=== PATIENT | female | born 1960 | race Caucasian/White ===

== ENCOUNTER → 2017-02-13 | Outpatient (CLI) | payer OTHER | END | disposition home or self-care (01) | LOC: CFH 08:34 | PROVIDERS: ATTEND Genetic Counselor, MS | DX: Z12.31 Encounter for screening mammogram for malignant neoplasm of breast (principal); M81.0 Age-related osteoporosis without current pathological fracture | CPT/HCPCS: 77080; G0202 ==

== ENCOUNTER 2017-05-31 19:58 | Emergency (ER) | payer OTHER ==
[~2017-05-31] VITALS: Ht 175.3 cm; Wt 60.9 kg
[2017-05-31 20:00] VITALS: BP 121/80
[2017-05-31] MEDS ORDERED: PROPOFOL 10 MG/ML, 20ML ONE (21:20)
[2017-05-31] MEDS ORDERED: PROPOFOL 10 MG/ML, 20ML IVPush ONE (21:30)
[2017-05-31] MEDS ORDERED: SODIUM CHLORIDE FLUSH 10ML SYR IVF ONE (21:30)
[2017-05-31] MEDS ORDERED: SODIUM CHLORIDE 0.9% 1,000ML IVBOLUS ONE (21:30)
[2017-05-31] MEDS ORDERED: HYDROcodone/APAP 5/325 TABLET ONE (21:47)
[2017-05-31] MEDS ORDERED: HYDROcodone/APAP 5/325 TABLET PO ONE (22:00)
== END 2017-05-31 22:58 | disposition home or self-care (01) ==
LOC: ED 22:35
DX: S52.511A Displaced fracture of right radial styloid process, initial encounter for closed fracture (principal); E78.5 Hyperlipidemia, unspecified; F10.220 Alcohol dependence with intoxication, uncomplicated; Z87.891 Personal history of nicotine dependence; X58.XXXA Exposure to other specified factors, initial encounter; Y93.89 Activity, other specified; Y92.090 Kitchen in other non-institutional residence as the place of occurrence of the external cause; Y99.8 Other external cause status
CPT/HCPCS: 25605; 36415; 80307; 99152; 99153

== ENCOUNTER 2019-05-27 07:39 | Outpatient (CLI) | payer OTHER | END 2019-05-27 23:59 | disposition home or self-care (01) | LOC: CFH 07:39 | PROVIDERS: ATTEND Genetic Counselor, MS | DX: R59.1 Generalized enlarged lymph nodes (principal); M85.80 Other specified disorders of bone density and structure, unspecified site; R91.8 Other nonspecific abnormal finding of lung field; Z90.710 Acquired absence of both cervix and uterus | CPT/HCPCS: 74177; 82565; Q9967 ==

== ENCOUNTER 2019-06-01 11:35 | Observation (INO) | payer OTHER ==
[~2019-06-01] VITALS: Ht 175.3 cm; Wt 54.0 kg
[~2019-06-01 11:35] MED LIST: EPINEPHRINE SYRINGE 0.1 MG/ML, 10ML ONE
[2019-06-01] MEDS ORDERED: LACTATED RINGERS 1,000 ML IV SCH (12:17)
[2019-06-01] MEDS ORDERED: LEVO100T5 PO (12:20)
[2019-06-01] MEDS ORDERED: MULT-658 PO (12:20)
[2019-06-01] MEDS ORDERED: CHOL100011 PO (12:20)
[2019-06-01] MEDS ORDERED: FISH OIL PO (12:20)
[2019-06-01 12:32] VITALS: BP 127/85
[2019-06-01] MEDS ORDERED: MIDAZOLAM 1 MG/ML, 2ML ONE ×2 (14:19→15:30)
[2019-06-01] MEDS ORDERED: PROPOFOL 10 MG/ML, 20ML ONE (14:20)
[2019-06-01] MEDS ORDERED: DEXAMETHASONE 4 MG/ML, 1ML ONE (14:20)
[2019-06-01] MEDS ORDERED: SUCCINYLCHOLINE 20 MG/ML, 10ML ONE (14:20)
[2019-06-01] MEDS ORDERED: ROCURONIUM 10 MG/ML,10ML ONE (14:20)
[2019-06-01] MEDS ORDERED: SUGAMMADEX 200 MG/2 ML IVPush ONE (15:07)
[2019-06-01] MEDS ORDERED: FENTANYL PF 250 MCG/5ML ONE (15:07)
[2019-06-01] MEDS ORDERED: ALBUTEROL SULFATE 2.5 MG/3 ML ONE (15:28)
[2019-06-01] MEDS ORDERED: ACETAMINOPHEN 325 MG TABLET PO PRN (15:30)
[2019-06-01] MEDS ORDERED: hydrALAzine 20 MG/ML, 1ML IV PRN (15:30)
[2019-06-01] MEDS ORDERED: HYDROmorphone 2 MG/ML, 1ML IVPush PRN (15:30)
[2019-06-01] MEDS ORDERED: EPHEDRINE 50 MG/ML, 1ML IVPush PRN (15:30)
[2019-06-01] MEDS ORDERED: MEPERIDINE/PF 25MG/0.5ML IVPush PRN (15:30)
[2019-06-01] MEDS ORDERED: DIAZEPAM 5 MG/ML, 2ML IVPush PRN (15:30)
[2019-06-01] MEDS ORDERED: OXYcodone 5 MG/5 ML ORAL.SOL UDC PO PRN (15:30)
[2019-06-01] MEDS ORDERED: ALBUTEROL SULFATE 2.5 MG/3 ML NPPB PRN (15:30)
[2019-06-01] MEDS ORDERED: ONDANSETRON 2MG/ML, 2ML IV PRN (15:30)
[2019-06-01] MEDS ORDERED: PROMETHAZINE 12.5 MG SUPP PR PRN (15:30)
[2019-06-01] MEDS ORDERED: FENTANYL PF 100 MCG/2ML ONE (15:30)
[2019-06-01] MEDS ORDERED: HALOPERIDOL 5 MG/ML IV PRN (15:30)
[2019-06-01] MEDS ORDERED: ONDANSETRON ODT 8 MG PO PRN (15:30)
[2019-06-01] MEDS ORDERED: PROMETHAZINE 25 MG/ML, 1ML IV PRN (15:30)
[2019-06-01] MEDS ORDERED: MORPHINE SULFATE 4 MG/ML, 1ML IVPush PRN (15:30)
[2019-06-01] MEDS ORDERED: LABETALOL 5MG/ML, 20ML IV PRN (15:30)
[2019-06-01] MEDS: MIDAZOLAM 1 MG/ML, 2ML IV PRN ×2 (15:32→15:47)
[2019-06-01] MEDS: FENTANYL PF 100 MCG/2ML IV PRN ×2 (15:33→15:47)
[2019-06-01 19:15] VITALS: BP 113/76
[2019-06-02 00:20] VITALS: BP 97/64
[2019-06-02] MEDS ORDERED: LEVOTHYROXINE 125 MCG TABLET PO SCH (06:00)
[2019-06-02 07:39] VITALS: BP 116/70
[2019-06-02 13:20] VITALS: BP 104/67
== END 2019-06-02 14:05 | disposition home or self-care (01) ==
LOC: OUT 11:35 → ORIP 18:18 → 4NOR 19:09 → DCLOUNGE 06-02 13:52
PROVIDERS: ADMIT Internal Medicine; ATTEND Internal Medicine
DX: C34.90 Malignant neoplasm of unspecified part of unspecified bronchus or lung (principal); E03.9 Hypothyroidism, unspecified; R09.02 Hypoxemia; Z87.891 Personal history of nicotine dependence
CPT/HCPCS: 31629; 71045; 88172; 88173; 88177; 88305; 93005; 94640; G0378; J0330; J1100; J2250; J2704; J3010; J7120; 88341; 88342

== ENCOUNTER 2019-06-03 07:55 | Outpatient (CLI) | payer OTHER ==
[~2019-06-03 07:55] MED LIST changes: +CHOL100011 PO; -EPINEPHRINE SYRINGE 0.1 MG/ML, 10ML ONE; +FISH OIL PO; +LEVO100T5 PO; +MULT-658 PO
[2019-06-03] MEDS ORDERED: GADOBUTROL 7.5 MMOL/7.5 ML VIAL ONE (08:30)
== END 2019-06-03 23:59 | disposition home or self-care (01) ==
LOC: CFH 07:55
PROVIDERS: ATTEND Internal Medicine
DX: C79.31 Secondary malignant neoplasm of brain (principal); C78.6 Secondary malignant neoplasm of retroperitoneum and peritoneum; C77.1 Secondary and unspecified malignant neoplasm of intrathoracic lymph nodes; R91.8 Other nonspecific abnormal finding of lung field
CPT/HCPCS: 70553; 78815; A9552; A9585

== ENCOUNTER → 2019-10-07 | Outpatient (CLI) | payer OTHER ==
[~2019-10-07] MED LIST changes: +OMNIPAQUE 350 MG/ML, 100ML BOTTLE ONE
== END | disposition home or self-care (01) ==
LOC: RAD 08:42
PROVIDERS: ATTEND Internal Medicine Hematology & Oncology
DX: C34.12 Malignant neoplasm of upper lobe, left bronchus or lung (principal); M47.812 Spondylosis without myelopathy or radiculopathy, cervical region; M17.0 Bilateral primary osteoarthritis of knee; M19.071 Primary osteoarthritis, right ankle and foot; M47.816 Spondylosis without myelopathy or radiculopathy, lumbar region; I25.10 Atherosclerotic heart disease of native coronary artery without angina pectoris; M47.814 Spondylosis without myelopathy or radiculopathy, thoracic region; M48.54XA Collapsed vertebra, not elsewhere classified, thoracic region, initial encounter for fracture; M48.56XA Collapsed vertebra, not elsewhere classified, lumbar region, initial encounter for fracture; Z87.891 Personal history of nicotine dependence
CPT/HCPCS: 71260; 74177; 78306; A9503; Q9967

== ENCOUNTER → 2019-10-14 | Outpatient (CLI) | payer OTHER ==
[~2019-10-14] MED LIST changes: +GADOTERATE 5 MMOL/10 ML VIAL ONE; -OMNIPAQUE 350 MG/ML, 100ML BOTTLE ONE
== END | disposition home or self-care (01) ==
LOC: CFH 09:30
PROVIDERS: ATTEND Radiology Radiation Oncology
DX: C79.31 Secondary malignant neoplasm of brain (principal); C34.90 Malignant neoplasm of unspecified part of unspecified bronchus or lung; G31.89 Other specified degenerative diseases of nervous system; G93.89 Other specified disorders of brain; I10 Essential (primary) hypertension
CPT/HCPCS: 70553; A9575

== ENCOUNTER → 2019-10-17 | Outpatient (CLI) | payer OTHER ==
[~2019-10-17] MED LIST changes: -GADOTERATE 5 MMOL/10 ML VIAL ONE
== END | disposition home or self-care (01) ==
LOC: ROC 09:21
PROVIDERS: ATTEND Radiology Radiation Oncology
DX: C79.31 Secondary malignant neoplasm of brain (principal)
CPT/HCPCS: 99213; G0463

== ENCOUNTER → 2019-12-08 | Outpatient (CLI) | payer OTHER ==
[~2019-12-08] MED LIST changes: +GADOTERATE 5 MMOL/10 ML VIAL ONE
== END | disposition home or self-care (01) ==
LOC: CFH 11:52
PROVIDERS: ATTEND Radiology Radiation Oncology
DX: C79.31 Secondary malignant neoplasm of brain (principal); G31.9 Degenerative disease of nervous system, unspecified
CPT/HCPCS: 70553; A9575

== ENCOUNTER → 2020-01-26 | Outpatient (CLI) | payer OTHER ==
[~2020-01-26] MED LIST changes: -GADOTERATE 5 MMOL/10 ML VIAL ONE; +OMNIPAQUE 350 MG/ML, 100ML BOTTLE ONE
== END | disposition home or self-care (01) ==
LOC: CFH 11:49
PROVIDERS: ATTEND Internal Medicine Hematology & Oncology
DX: C34.12 Malignant neoplasm of upper lobe, left bronchus or lung (principal); M47.816 Spondylosis without myelopathy or radiculopathy, lumbar region; M85.88 Other specified disorders of bone density and structure, other site; N28.89 Other specified disorders of kidney and ureter; I70.0 Atherosclerosis of aorta
CPT/HCPCS: 71260; 74177; Q9967

== ENCOUNTER → 2020-03-12 | Outpatient (CLI) | payer OTHER ==
[~2020-03-12] MED LIST changes: +GADOTERATE 7.5 MMOL/15 ML SYR ONE; -OMNIPAQUE 350 MG/ML, 100ML BOTTLE ONE
== END | disposition home or self-care (01) ==
LOC: CFH 12:24
PROVIDERS: ATTEND Radiology Radiation Oncology
DX: C79.31 Secondary malignant neoplasm of brain (principal); G93.89 Other specified disorders of brain
CPT/HCPCS: 70553; A9575

== ENCOUNTER 2020-04-30 11:54 | Outpatient (CLI) | payer OTHER ==
[~2020-04-30 11:54] MED LIST changes: -GADOTERATE 7.5 MMOL/15 ML SYR ONE
[2020-04-30] MEDS ORDERED: OMNIPAQUE 350 MG/ML, 100ML BOTTLE ONE (14:41)
== END 2020-04-30 23:59 | disposition home or self-care (01) ==
LOC: CFH 11:54
PROVIDERS: ATTEND Internal Medicine Hematology & Oncology
DX: C34.12 Malignant neoplasm of upper lobe, left bronchus or lung (principal); J98.19 Other pulmonary collapse; R91.8 Other nonspecific abnormal finding of lung field; G95.89 Other specified diseases of spinal cord
CPT/HCPCS: 71260; 74177; Q9967

== ENCOUNTER → 2020-06-13 | Outpatient (CLI) | payer OTHER ==
[~2020-06-13] MED LIST changes: +GADOTERATE 5 MMOL/10 ML VIAL ONE
== END | disposition home or self-care (01) ==
LOC: CFH 10:02 → EDSTATUS 10:30
PROVIDERS: ATTEND Internal Medicine Hematology & Oncology
DX: C79.31 Secondary malignant neoplasm of brain (principal); C34.12 Malignant neoplasm of upper lobe, left bronchus or lung
CPT/HCPCS: 70553; A9575

== ENCOUNTER 2020-08-01 07:48 | Outpatient (CLI) | payer OTHER ==
[~2020-08-01 07:48] MED LIST changes: -GADOTERATE 5 MMOL/10 ML VIAL ONE
== END 2020-08-01 23:59 | disposition home or self-care (01) ==
LOC: ROC 07:48
PROVIDERS: ATTEND Radiology Radiation Oncology
DX: C79.51 Secondary malignant neoplasm of bone (principal); R19.09 Other intra-abdominal and pelvic swelling, mass and lump; C34.12 Malignant neoplasm of upper lobe, left bronchus or lung; C79.31 Secondary malignant neoplasm of brain
CPT/HCPCS: 99213; G0463

== ENCOUNTER 2020-08-07 07:16 | Day surgery (SDC) | payer OTHER ==
[~2020-08-07] VITALS: Ht 175.3 cm; Wt 53.0 kg
[2020-08-07 07:42] VITALS: BP 119/84
[2020-08-07] MEDS ORDERED: LACTATED RINGERS 1,000 ML IV SCH (07:45)
== END 2020-08-07 08:51 | disposition home or self-care (01) ==
LOC: OUT 07:16
PROVIDERS: ATTEND Internal Medicine Hematology & Oncology
DX: R19.09 Other intra-abdominal and pelvic swelling, mass and lump (principal); Z53.8 Procedure and treatment not carried out for other reasons; C34.12 Malignant neoplasm of upper lobe, left bronchus or lung; C79.31 Secondary malignant neoplasm of brain; C79.51 Secondary malignant neoplasm of bone; E03.9 Hypothyroidism, unspecified; Z79.890 Hormone replacement therapy; Z87.891 Personal history of nicotine dependence
CPT/HCPCS: J7120

== ENCOUNTER 2020-09-11 08:21 | Outpatient (CLI) | payer OTHER | END 2020-09-11 23:59 | disposition home or self-care (01) | LOC: ROC 08:21 | PROVIDERS: ATTEND Radiology Radiation Oncology | DX: Z08 Encounter for follow-up examination after completed treatment for malignant neoplasm (principal); Z85.830 Personal history of malignant neoplasm of bone; E03.9 Hypothyroidism, unspecified; Z85.118 Personal history of other malignant neoplasm of bronchus and lung; Z87.891 Personal history of nicotine dependence; Z85.841 Personal history of malignant neoplasm of brain | CPT/HCPCS: 99213; G0463 ==

== ENCOUNTER → 2020-09-24 | Outpatient (CLI) | payer OTHER | END | disposition home or self-care (01) | LOC: RAD 09:19 | PROVIDERS: ATTEND Internal Medicine Hematology & Oncology | DX: C34.12 Malignant neoplasm of upper lobe, left bronchus or lung (principal); I82.811 Embolism and thrombosis of superficial veins of right lower extremity; R60.9 Edema, unspecified ==

== ENCOUNTER 2020-10-04 08:01 | Outpatient (CLI) | payer OTHER | END 2020-10-04 23:59 | disposition home or self-care (01) | LOC: ROC 08:01 | PROVIDERS: ATTEND Radiology Radiation Oncology | DX: Z08 Encounter for follow-up examination after completed treatment for malignant neoplasm (principal); E03.9 Hypothyroidism, unspecified; Z85.830 Personal history of malignant neoplasm of bone; Z85.841 Personal history of malignant neoplasm of brain; Z85.118 Personal history of other malignant neoplasm of bronchus and lung; Z87.891 Personal history of nicotine dependence | CPT/HCPCS: 99442 ==

== ENCOUNTER → 2020-11-16 | Outpatient (CLI) | payer OTHER ==
[~2020-11-16] MED LIST changes: +OMNIPAQUE 350 MG/ML, 100ML BOTTLE ONE
== END | disposition home or self-care (01) ==
LOC: CFH 13:15
PROVIDERS: ATTEND Internal Medicine Hematology & Oncology
DX: C34.12 Malignant neoplasm of upper lobe, left bronchus or lung (principal); C79.31 Secondary malignant neoplasm of brain; C79.51 Secondary malignant neoplasm of bone; K76.0 Fatty (change of) liver, not elsewhere classified; R91.8 Other nonspecific abnormal finding of lung field; K57.30 Diverticulosis of large intestine without perforation or abscess without bleeding; J98.4 Other disorders of lung; D70.1 Agranulocytosis secondary to cancer chemotherapy; I71.4 Abdominal aortic aneurysm, without rupture; M48.56XA Collapsed vertebra, not elsewhere classified, lumbar region, initial encounter for fracture; J98.11 Atelectasis; I70.0 Atherosclerosis of aorta
CPT/HCPCS: 71260; 74177; Q9967

== ENCOUNTER → 2020-12-12 | Outpatient (CLI) | payer OTHER ==
[~2020-12-12] MED LIST changes: +GADOTERATE 5 MMOL/10 ML VIAL ONE; -OMNIPAQUE 350 MG/ML, 100ML BOTTLE ONE
== END | disposition home or self-care (01) ==
LOC: CFH 09:01
PROVIDERS: ATTEND Radiology Radiation Oncology
DX: C79.31 Secondary malignant neoplasm of brain (principal); J34.89 Other specified disorders of nose and nasal sinuses
CPT/HCPCS: 70553; A9575

== ENCOUNTER → 2021-02-14 | Outpatient (CLI) | payer OTHER ==
[~2021-02-14] MED LIST changes: -GADOTERATE 5 MMOL/10 ML VIAL ONE; +OMNIPAQUE 350 MG/ML, 100ML BOTTLE ONE
== END | disposition home or self-care (01) ==
LOC: CFH 12:55
PROVIDERS: ATTEND Internal Medicine Hematology & Oncology
DX: Z51.11 Encounter for antineoplastic chemotherapy (principal); Z51.12 Encounter for antineoplastic immunotherapy; R91.1 Solitary pulmonary nodule; K76.0 Fatty (change of) liver, not elsewhere classified; C79.51 Secondary malignant neoplasm of bone; C79.31 Secondary malignant neoplasm of brain; C34.12 Malignant neoplasm of upper lobe, left bronchus or lung; D70.1 Agranulocytosis secondary to cancer chemotherapy; Z79.899 Other long term (current) drug therapy
CPT/HCPCS: 71260; 74177; Q9967

== ENCOUNTER → 2021-03-12 | Outpatient (CLI) | payer OTHER ==
[~2021-03-12] MED LIST changes: +GADOTERATE 7.5 MMOL/15ML SYR ONE; -OMNIPAQUE 350 MG/ML, 100ML BOTTLE ONE; +OMNIPAQUE 350 MG/ML, 75ML BOTTLE ONE
== END | disposition home or self-care (01) ==
LOC: RAD 09:28
PROVIDERS: ATTEND Internal Medicine Hematology & Oncology
DX: C34.12 Malignant neoplasm of upper lobe, left bronchus or lung (principal); R91.8 Other nonspecific abnormal finding of lung field
CPT/HCPCS: 70553; 71260; 78306; A9503; A9575; Q9967

== ENCOUNTER → 2021-04-04 | Outpatient (CLI) | payer OTHER ==
[~2021-04-04] MED LIST changes: -GADOTERATE 7.5 MMOL/15ML SYR ONE; -OMNIPAQUE 350 MG/ML, 75ML BOTTLE ONE
== END | disposition home or self-care (01) ==
LOC: PETCFH 07:23
PROVIDERS: ATTEND Internal Medicine Hematology & Oncology
DX: C34.12 Malignant neoplasm of upper lobe, left bronchus or lung (principal)
CPT/HCPCS: 78815; A9552

== ENCOUNTER → 2021-04-04 | Outpatient (CLI) | payer OTHER | END | disposition home or self-care (01) | LOC: ROC 11:12 | PROVIDERS: ATTEND Radiology Radiation Oncology | DX: Z08 Encounter for follow-up examination after completed treatment for malignant neoplasm (principal); Z85.830 Personal history of malignant neoplasm of bone; Z85.118 Personal history of other malignant neoplasm of bronchus and lung; Z79.899 Other long term (current) drug therapy; Z85.841 Personal history of malignant neoplasm of brain | CPT/HCPCS: 99213; G0463 ==

== ENCOUNTER → 2021-04-22 | Outpatient (CLI) | payer OTHER | END | disposition home or self-care (01) | LOC: RAD 12:45 | PROVIDERS: ATTEND Internal Medicine Hematology & Oncology | DX: C34.12 Malignant neoplasm of upper lobe, left bronchus or lung (principal); R22.43 Localized swelling, mass and lump, lower limb, bilateral | CPT/HCPCS: 93970 ==

== ENCOUNTER 2021-07-05 13:23 | Outpatient (CLI) | payer OTHER | END 2021-07-05 23:59 | disposition home or self-care (01) | LOC: CFH 13:23 | PROVIDERS: ATTEND Internal Medicine Hematology & Oncology | DX: C34.12 Malignant neoplasm of upper lobe, left bronchus or lung (principal); M79.669 Pain in unspecified lower leg | CPT/HCPCS: 93970 ==

== ENCOUNTER 2021-07-15 09:43 | Outpatient (CLI) | payer OTHER | END 2021-07-15 23:59 | disposition home or self-care (01) | LOC: CFH 09:43 | PROVIDERS: ATTEND Radiology Radiation Oncology | DX: C34.12 Malignant neoplasm of upper lobe, left bronchus or lung (principal); R91.8 Other nonspecific abnormal finding of lung field | CPT/HCPCS: 71250 ==

== ENCOUNTER 2021-07-18 08:26 | Outpatient (CLI) | payer OTHER | END 2021-07-18 23:59 | disposition home or self-care (01) | LOC: ROC 08:26 | PROVIDERS: ATTEND Radiology Radiation Oncology | DX: Z08 Encounter for follow-up examination after completed treatment for malignant neoplasm (principal); Z85.841 Personal history of malignant neoplasm of brain; Z85.830 Personal history of malignant neoplasm of bone; Z85.118 Personal history of other malignant neoplasm of bronchus and lung | CPT/HCPCS: 99213; G0463 ==

== ENCOUNTER 2021-07-18 15:03 | Outpatient (CLI) | payer OTHER ==
[2021-07-18] MEDS ORDERED: GADOTERATE 5 MMOL/10ML SYR ONE (16:18)
== END 2021-07-18 23:59 | disposition home or self-care (01) ==
LOC: CFH 15:03
PROVIDERS: ATTEND Internal Medicine Hematology & Oncology
DX: C34.12 Malignant neoplasm of upper lobe, left bronchus or lung (principal); G31.9 Degenerative disease of nervous system, unspecified; J34.89 Other specified disorders of nose and nasal sinuses
CPT/HCPCS: 70553; A9575